=== PATIENT | female | born 1990 | race Caucasian/White ===

== ENCOUNTER 2019-12-13 14:32 | Outpatient (CLI) | payer OTHER ==
--- NOTE | 2019-12-13 15:04 | RAD ---
EXAM: 3 views of the right wrist HISTORY: Wrist pain after fall yesterday COMPARISON: None FINDINGS: 3 views of the right wrist shows an impacted fracture of the distal radial metaphysis. This appears extra-articular. Mild soft tissue swelling is seen. No degenerative changes are present. IMPRESSION: Distal radius fracture
== END 2019-12-13 14:33 | disposition home or self-care (01) ==
LOC: SCSRAD 14:32
PROVIDERS: ATTEND Family Medicine
DX: M25.531 Pain in right wrist (principal); S52.501A Unspecified fracture of the lower end of right radius, initial encounter for closed fracture